=== PATIENT | female | born 1940 | race Caucasian/White ===

== ENCOUNTER 2025-04-27 16:06 | Emergency (ER) | payer OTHER ==
[~2025-04-27] VITALS: Ht 165.1 cm; Wt 74.1 kg
[~2025-04-27 16:06] MED LIST: ALEN35TA18 OR; EZET10TA22 OR; LISI20TA56 OR; METO25TA36 OR; OMEPRAZOLE; RED600TA OR; SIMV80TA17 OR; [UNRECOGNIZED DRUG - CODE] EX; [UNRECOGNIZED DRUG - OTHER]
[2025-04-27] MEDS: SODIUM CHLORIDE 0.9% 1,000 ML IV ONE (17:06)
--- NOTE | 2025-04-27 17:22 | ECG ---
[facility] Test Date: 2025-04-27 Test Time: 16:10:28 Pat Name: TRUMAN SUMMERS Department: Room: Gender: F Lead Producer: JANELLE : 1940 Requested By: DANIEL MELTON Order Number: [id number] Reading MD: Abelino Chopra Measurements Intervals [place] Rate: 88 P: 63 MD: 200 QRS: 45 QRSD: 102 T: 40 QT: 368 QTc: 446 Interpretive Statements Sinus rhythm Electronically Signed On 04-29-2025 20:05:58 PST by Abelino Chopra Please click the below link to view image of tracing.
[2025-04-27 17:36] LABS: Hematocrit 36.0 % (36.0-46.0); Hemoglobin 12.2 g/dL (12.2-16.2); Mean Corpuscular Hemoglobin 29.7 pg (28.0-32.0); Mean Corpuscular Volume 87.6 fL (80.0-100.0); Nucleated Red Blood Cells % 0.0 %
[2025-04-27 17:38] LABS: Potassium 3.7 mmol/L (3.5-5.1)
[2025-04-27 17:39] LABS: Anion Gap 10 (5-15); Calcium 9.4 mg/dL (8.7-10.4); Carbon Dioxide 25 mmol/L (20-31)
[2025-04-27 17:40] LABS: Chloride 97 mmol/L (98-107); Sodium 132 mmol/L (136-145)
--- NOTE | 2025-04-27 17:40 | ED.PDOC ---
HPI (NEURO) HPI Comments 84 y/o F, with PMHx of HTN , HLD, and DM presents to the D for s/p syncopal episode. Patient states, she had a syncopal episode from a siting position followed by an episode of emesis onset, Today (04/27/25). Patient reports, prior to syncopal episode to have experienced symptoms of dizziness. Patient does comment on PMHx of vascular syncope. Patient denies head injury, headache, or urinary incontinence. Chief Complaint: Syncope Time Seen by MD: 17:30 Reviewed Notes: Nurses Notes, Medications, Allergies Information Source: Patient Mode of Arrival: EMS Severity: Moderate Headache Severity: None Timing: Minutes Prehospital treatment: None Onset: At rest Circumstances: Spontaneous Symptoms: Syncope Before: Normal During: Awake After: Normal Mentation History of: DM Modifying factors: Nothing Past Medical History PAST MEDICAL HISTORY: Cancer, DM, High Lipids, HTN Surgical History: Denies all surgeries CAP COVERER History: No Pertinent CAP COVERER History Family History Family History: Unobtainable Social History Smoker: Non-Smoker Alcohol: Denies ETOH Use Drugs: Denies Drug Use Lives In: Home Constitutional: denies: chills, diaphoresis, fatigue, fever, malaise, sweats, weakness, others EENTM: denies: blurred vision, double vision, ear bleeding, ear discharge, ear drainage, ear pain, ear ringing, eye pain, eye redness, hearing loss, mouth pain, mouth swelling, nasal discharge, nose bleeding, nose congestion, nose pain, photophobia, tearing, throat pain, throat swelling, voice changes, others Respiratory: denies: cough, hemoptysis, orthopnea, SOB at rest, shortness of breath, SOB with excertion, stridor, wheezing, others Cardiovascular: denies: chest pain, dizzy spells, diaphoresis, Dyspnea on exertion, edema, irregular heart beat, left arm pain, lightheadedness, palpitations, PND, syncope, others Gastrointestinal: denies: abdomen distended, abdominal pain, blood streaked bowels, constipated, diarrhea, dysphagia, difficulty swallowing, hematemesis, melena, nausea, poor appetite, poor fluid intake, rectal bleeding, rectal pain, vomiting, others Genitourinary: denies: abnormal vagina bleeding, burning, dyspareunia, dysuria, flank pain, frequency, hematuria, incontinence, pain, , vagina discharge, urgency, others Neurological: reports: dizziness, fainting; denies: headache, left sided numbness, left sided weakness, numbness, paresthesia, pre-existing deficit, right sided numbness, right sided weakness, seizure, speech problems, tingling, tremors, weakness, others Musculoskeletal: denies: back pain, gout, joint pain, joint swelling, muscle pain, muscle stiffness, neck pain, others Integumetry: denies: bruises, change in color, change in hair/nails, dryness, laceration, lesions, lumps, rash, wounds, others Allergic/Immunocompromised: denies: Difficulty Healing, Frequent Infections, Hives, Itching, others Hematologic/Lymphatic: denies: anemia, blood clots, easy bleeding, easy bruising, swollen glands, others Endocrine: denies: excessive hunger, excessive sweating, excessive thirst, excessive urination, flushing, intolerance to cold, intolerance to heat, unexplained weight gain, unexplained weight loss, others Psychiatric: denies: anxiety, bipolar disorder, depression, hopeless, panic disorder, schizophrenia, sleepless, suicidal, others All Other Systems: Reviewed and Negative Physical Exam General Appearance: No Apparent Distress, Normal HEENT: Normal ENT Inspection, Pharynx Normal Neck: Full Range of Motion, Non-Tender, Normal, Normal Inspection Respiratory: Chest Non-Tender, Lungs Clear, No Accessory Muscle Use, No Respiratory Distress, Normal Breath Sounds Cardiovascular: No Edema, No Murmur, No Gallop, Normal Peripheral Pulses, Regular Rate/Rhythm Breast Exam: Deferred Gastrointestinal: No Organomegaly, Non Tender, No Pulsatile Mass, Normal Bowel Sounds, Soft Genitalia: Deferred Pelvic: Deferred Rectal: Deferred Extremities: No calf tenderness, Normal capillary refill, Normal inspection, Normal range of motion, Non-tender, No pedal edema Musculoskeletal : Apperance: Normal Neurologic: Alert, ingredient scaler II-XII nml as Tested, No Motor Deficits, Normal Affect, Normal Mood, No Sensory Deficits Cerebellar Function: Normal Reflexes: Normal Skin: Dry, Normal Color, Warm Lymphatic: No Adenopathy EKG EKG : Pulse Rate (adult): 88 Cardiac Rhythm: NSR Comments No evidence of AV block, Brugada, prolonged QTC, delta waves, nor epsilon waves. Was a procedure done? Was a procedure done?: No Differential Diagnosis (SZ) General Weakness: Dehydration, Electrolyte imbalance, Hypoglycemia, Hypotension, Vertigo: central, Vertigo: peripheral X-Ray, Labs, Meds, VS Vital Signs Date Time Temp Pulse Resp B/P (MAP) Pulse Ox O2 Delivery O2 Flow Rate FiO2 04/27/25 18:00 86 15 122/59 (80) 93 04/27/25 17:00 97.7 80 14 147/58 (87) 96 97.7 04/27/25 16:52 89 13 122/73 (89) 96 04/27/25 16:10 88 04/27/25 16:06 Room Air* 0 21 04/27/25 16:06 98.4 86 16 101/69 96 98.4 Lab Test 04/27/25 19:04 04/27/25 17:53 04/27/25 16:45 Range/Units Troponin I High Sensitivity Pending 5 4 </=34 ng/L White Blood Count 7.1 4.4-10.8 10^3/uL Red Blood Count 4.11 4.0-5.20 10^6/uL Hemoglobin 12.2 12.2-16.2 g/dL Hematocrit 36.0 36.0-46.0 % Mean Corpuscular Volume 87.6 80.0-100.0 fL Mean Corpuscular Hemoglobin 29.7 28.0-32.0 pg Mean Corpuscular Hemoglobin Concent 34.0 32.0-36.0 g/dL Red Cell Distribution Width 15.5 H 11.8-14.3 % Platelet Count 312 140-450 10^3/uL Mean Platelet Volume 7.6 6.9-10.8 fL Neutrophils (%) (Auto) 81.6 H 37.0-80.0 % Lymphocytes (%) (Auto) 12.3 10.0-50.0 % Monocytes (%) (Auto) 5.3 0.0-12.0 % Eosinophils (%) (Auto) 0.2 0.0-7.0 % Basophils (%) (Auto) 0.6 0.0-2.0 % Neutrophils # (Auto) 5.8 1.6-8.6 10 ^3/uL Lymphocytes # (Auto) 0.9 0.4-5.4 10 ^3/uL Monocytes # (Auto) 0.4 0-1.3 10 ^3/uL Eosinophils # (Auto) 0 0-0.8 10 ^3/uL Basophils # (Auto) 0 0-0.2 10 ^3/uL Nucleated Red Blood Cells 0.0 % Sodium Level 132 L 136-145 mmol/L Potassium Level 3.7 3.5-5.1 mmol/L Chloride Level 97 L 98-107 mmol/L Carbon Dioxide Level 25 20-31 mmol/L Anion Gap 10 5-15 Blood Urea Nitrogen 15 9-23 mg/dL Creatinine 1.38 H 0.550-1.02 mg/dL Glomerular Filtration Rate Calc 37 >90 mL/min BUN/Creatinine Ratio 10.9 10.0-20.0 Serum Glucose 217 H 74-106 mg/dL Calcium Level 9.4 8.7-10.4 mg/dL Magnesium Level 1.7 1.6-2.6 mg/dL B-Type Natriuretic Peptide 45.32 0-100 pg/mL Current Medications Medications (Trade) Dose Ordered Sig/Ann-Marie Route Start Time Stop Time Status Last Admin Sodium Chloride 1,000 ml @ 1,000 mls/hr Q1H ONCE IV 04/27/25 17:00 04/27/25 18:00 DC 04/27/25 17:06 [place] [id number] Ph: [phone] DIAGNOSTIC IMAGING Diagnostic Imaging Report : [id number] Signed PATIENT: TRUMAN SUMMERS ACCT: [id number] UNIT: [id number] : 1940 LOC: ER ROOM / BED: / AGE / SEX: 84 / F ADM STATUS: REG ER SERVICE 57 ORDERING PHYSICIAN: DANIEL MELTON MD PROCEDURE(s): CXRP - CHEST PORTABLE REASON: r/o pna ORDER NUMBER(s): [id number], ACCESSION NUMBER(s): [id number] CHEST RADIOGRAPH INDICATION: r/o pna TECHNIQUE: Single frontal view of the chest was obtained COMPARISON: None FINDINGS: Lines and Tubes: None Lungs: No focal consolidation. Mildly prominent basilar interstitial markings may be chronic. No prior studies for comparison. Pleura: No effusion. No pneumothorax. Cardiomediastinal contours: Unremarkable Bones: No acute osseous abnormality. IMPRESSION: 1. No acute cardiopulmonary disease. ATED BY: BERKLEY AYALA Jr., DO DICTATED DATE/TIME: 04/27/251803 SIGNED BY: BERKLEY AYALA Jr., SIGNED DATE/TIME: 04/27/251803 CC: X-Ray, Labs, Meds, VS Comment 84-year-old female here today status post witnessed syncopal episode with nausea. Vital signs stable, afebrile. Physical exam without any acute findings. Patient did not fall, no trauma. Lab work overall very reassuring only notable for evidence of mild hyperglycemia without evidence of DKA or HHS. Patient was given a L of normal saline and Zofran and was asymptomatic afterwards. Plan made to transfer the patient to [place] for telemetry monitoring and further workup of her syncope. Consult-I discussed the case extensively by phone with Dr. Villanueva from [facility] who accepted the patient for transfer, authorization number: [id number] Images Reviewed?: Images reviewed and evaluated by me Time of 1ST Reevaluation: 18:00 Reevaluation 1ST: Unchanged Patient Education/Counseling: Diagnosis, Treatment Family Education/Counseling: No Family Present Departure 1 Departure Time of Disposition: 19:58 Impression: Primary Impression: Syncope Additional Impressions: Nausea & vomiting Hyperglycemia History of syncope Disposition: 02 SHORT TERM HOSPITAL Admit to: [facility] Condition: Guarded Critical Care Note Critical Care Time?: Yes (30 min-critical care time only) Stability Stability form required: Yes Initial call: 19:35 Stable for transfer: Intended for transfer (Health plan request transfer) Heart Score Heart Score: Heart Score Response (Comments) Value History N/A 0 EKG N/A 0 Age N/A 0 Risk Factors N/A 0 Troponin N/A 0 Total 0 I personally scribed for DANIEL MELTON MD ([email or web address]) on 04/27/25 at 17:40. Electronically submitted by Sofia Leal ([email or web address]). I personally scribed for DANIEL MELTON MD ([email or web address]) on 04/27/25 at 18:19. Electronically submitted by Sofia Leal ([email or web address]). DANIEL MELTON MD Apr 27, 2025 17:40
[2025-04-27 17:44] LABS: BUN/Creatinine Ratio 10.9 (10.0-20.0); Blood Urea Nitrogen 15 mg/dL (9-23)
[2025-04-27 17:46] LABS: Glucose 217 mg/dL (74-106)
--- NOTE | 2025-04-27 18:06 | DVH ---
CHEST RADIOGRAPH INDICATION: r/o pna TECHNIQUE: Single frontal view of the chest was obtained COMPARISON: None FINDINGS: Lines and Tubes: None Lungs: No focal consolidation. Mildly prominent basilar interstitial markings may be chronic. No prior studies for comparison. Pleura: No effusion. No pneumothorax. Cardiomediastinal contours: Unremarkable Bones: No acute osseous abnormality. IMPRESSION: 1. No acute cardiopulmonary disease.
[2025-04-27 22:42] VITALS: PULSE 85; RESP 13; O2SAT 95
[2025-04-27] MEDS: ONDANSETRON HCL 4 MG/2 ML VIAL IV ONE (22:55)
[2025-04-27 23:35] VITALS: BP 138/57; PULSE 74; RESP 15; TEMP 98.4; O2SAT 93
== END 2025-04-27 23:42 | disposition short-term general hospital (02) ==
LOC: EDBD 16:06 → ER 16:06
DX: R55 Syncope and collapse (principal); R11.2 Nausea with vomiting, unspecified; I10 Essential (primary) hypertension; E11.65 Type 2 diabetes mellitus with hyperglycemia; E78.5 Hyperlipidemia, unspecified; Z03.89 Encounter for observation for other suspected diseases and conditions ruled out
CPT/HCPCS: 36415; 71045; 80048; 83735; 83880; 84484; 85025; 93005; 96360; 96361; 99285; J7030; 99291